=== PATIENT | female | born 2005 | race Caucasian/White ===

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

== ENCOUNTER 2025-06-08 00:25 | Emergency (ER) | payer BC, SELFPAY ==
--- NOTE | ~2025-06-08 | CT_ITS ---
CLINICAL HISTORY: Ruano vomiting s p HS with soccerball CT Head WO Contrast COMPARISON: None provided FINDINGS: No acute intracranial hemorrhage. No evidence of acute infarction. No mass-effect or midline shift. No hydrocephalus. Visualized paranasal sinuses are clear. The mastoid air cells are clear. The visible orbits are normal. No acute fracture. Unremarkable soft tissues. IMPRESSION: No acute intracranial findings. This document has been electronically signed by: Marshal Freeman MD on 06/08/2025 03:52:55
--- OUTSIDE RECORDS SUMMARY | 2025-06-08 00:11 | XMS_ITS | Encounter Summary ---
Author Organization [facility] Address [address] [place] [address] Phone Care Team Providers Care Bacon Skinner Name Role Phone Unavailable Primary Care Provider Unavailabl e Reason for Visit * Reason Comments Emesis Encounter Details Date Type Department Care Team (Late st Contact Info) Description 06/08/2025 12:11 AM EDT - 06/08/2025 12:22 AM EDT Emergency [facility] [address] [place] [address] Discharge Disposition: Left Without Being Seen Social History Tobacco Use Types Packs/Day Years Used Date Smoking Tobacco: Never Passive Smoke Exposure: Never Smokeless Tobacco: Never Tobacco Cessation:Counseling Given: Not Answered Alcohol Use Standard Drinks/Week Comments Not Currently 0 (1 standard drink = 0.6 oz pur e alcohol) Education Answer Date Recorded Are you interested in more education? Not on mikel e 05/15/2025 Are you concerned about learning? Not on file 05/15/2025 No 05/15/2025 No 05/15/2025 Digital Access Answer Date Recorded No 05/15/2025 No 05/15/2025 Reliable internet access at home? Not on file 05/15/2025 Device with a working camera? Not on file Comments Unknown Sex and Gender Information Value Date Recorded Sex Assigned at Not on file Legal Sex Female 4:05 PM EDT Gender Identity Not on file Sexual Orientation Not on file documented as of this encounter Last Filed Vital Signs Vital Sign Reading Time Taken Comments Blood Pressure 122/72 06/07/2025 11:48 PM EDT Pulse 86 06/07/2025 11:48 PM EDT Temperature 36.7 C (98 F) 06/07/2025 11:48 PM EDT Respiratory Rate 16 06/07/2025 11:48 PM EDT Oxygen Saturation 100% 06/07/2025 11:48 PM EDT Inhaled Oxygen Concentration - - Weight 61.2 kg (135 lb) 06/07/2025 11:48 PM EDT Height 162.6 cm (5' 4 ) 06/07/2025 11:48 PM EDT Body Mass Index 23.17 06/07/2025 11:48 PM EDT documented in this encounter Functional Status * Calculated C-SSRS Risk Score (Lifetime/Recent) Answer Date of Assessment Author No Risk Indicated 06/07/2025 11:49 PM EDT Gaye Paul RN * [place] Suicide Severity Rating Scale (Screener/Recent Self-Report) Question Answer Date of Assessment Author 1. Wish to be (Past 1 Month) No 06/07/2025 11:49 PM EDT Gaye Paul RN 2. Non-Specific Active Suicidal Thoughts (Past 1 Month) No 06/07/2025 11:49 PM EDT Gaye Paul RN 6. Suicidal Behavior (Lifetime) No 06/07/2025 11:49 PM EDT Gaye Paul RN documented as of this encounter ED Notes * Gaye Paul RN - 06/07/2025 11:47 PM EDT Patient presents with vomiting that started a few hours ago, took zofran with some relief, vomitingstarted out of the blue. No abdominal pain, no urinary complaints, last BM earlier today, normal. Awake, alert and oriented, speaking clearly, breathing equal and unlabored, afebrile. documented in this encounter Plan of Treatment Not on file documented as of this encounter Visit Diagnoses Not on filedocumented in this encounter Additional Source Comments The information contained in this document represents components of the legal health record. It is not the complete legal health record.[facility]
[2025-06-08 00:36] VITALS: BP 116/73; PULSE 84; RESP 16; TEMP 36.8; O2SAT 98; BMI 22.9
[2025-06-08 01:12] LABS: MANUAL DIFF FLAG NO
[2025-06-08 01:13] LABS: Hematocrit 39.9 % (37.0-47.0); Hemoglobin 13.9 g/dl (12.0-16.0); Imm Gran Abs Auto 0.07 X10*3/uL (0.00-0.03); Imm Gran Pct Auto 0.4 % (0.0-0.4); Lymphocytes Absolute Auto 0.9 X10*3/uL (1.2-4.9); Mean Corpuscular HGB Conc 34.8 g/dl (31.0-35.0); Mean Corpuscular Hemoglobin 28.2 pg (27.0-33.0); Mean Corpuscular Volume 80.9 fL (80.0-98.0); NRBC Abs Auto 0.000 X10*3/uL (0.0-0.012); NRBC Pct Auto 0.0 /100WBC (0.0-0.2); Platelet Count 359 X10*3/uL (160-400); Red Blood Count 4.93 X10*6/uL (4.20-5.50); White Blood Count 16.6 X10*3/uL (4.8-10.8)
[2025-06-08 01:32] LABS: Alanine Aminotransferase 18 U/L (0-31); Albumin Level 4.7 g/dL (3.5-5.0); Alkaline Phosphatase 84 U/L (39-117); Anion Gap 15 (12-20); Aspartate Amino Transferase 26 U/L (5-31); Blood Urea Nitrogen 6 mg/dL (9-16); Calcium 9.3 mg/dL (8.4-10.2); Carbon Dioxide 21 mmol/L (22-29); Chloride 110 mmol/L (96-108); Creatinine Clr Calc Pharmacy 98.1; Estimated Glomerular Filt Rate > 60; Magnesium 1.8 mg/dL (1.6-2.6); Potassium 3.8 mmol/L (3.3-5.1); Sodium 142 mmol/L (135-145); Total Protein 7.1 g/dL (6.5-8.0)
--- NOTE | 2025-06-08 01:56 | PC.NURSE ---
pt reports generalized pain 02/15, just doesn't feel well, threw up at least 14 times since about 11 pm, ate lunch at noon and played [employer] at 7 pm, during the game she head butted a ball and felt fine until an hour or so after the game when she was walking into her house. nausea and vomiting has subsided due to taking zofran from a friend. has been unable to tolerate the Gatorade she is trying to consume.
--- OUTSIDE RECORDS SUMMARY | 2025-06-08 02:17 | XMS_ITS | Encounter Summary ---
Author Organization [facility] Address [address] [place] [address] Care Team Providers Care Pig Conveyor Operator Name Role Phone Shima Marley MD Primary Care Provider Reason for Visit * Reason Comments E-prescribing Refill Request Encounter Details Date Type Department Care Team (Late st Contact Info) Description 03/18/[address] [facility] [address] [place] [phone] Marce Davis, GENE [address] [place] [address] E-prescribing Refill Request Social History Tobacco Use Types Packs/Day Years Used Date Smoking Tobacco: Never Passive Smoke Exposure: Never Smokeless Tobacco: Never Comments:patient was a previ ous vaper- quit 10/2024 Alcohol Use Standard Drinks/Week Comments Yes 0 (1 standard drink = 0.6 oz pure alcohol) 1-2 x per week , usually 2 drinks. PHQ-2 Answer Date Recorded PHQ-2 Score 2 12/13/2024 PHQ-9 Answer Date Recorded PHQ-9 Score 2 12/13/2024 Intimate Partner Violence Answer Date R ecorded [...] Upcoming Encounters Date Type Department Care Team (Latest Contact Info) Description 05/26/2026 2:15 PM EDT CPE - Comprehensive Physical Exam [facility] [address] [place] [phone] Marce Davis, GENE [address] [place] [address] CPE last 05/04/2025 documented as of this encounter Visit Diagnoses Not on filedocumented in this encounter Care Teams Pig Conveyor Operator Relationship Specialty Start Date End Date Shima Marley MD [address] [place] [address] PCP - General 05/24/23 documented as of this encounter
--- OUTSIDE RECORDS SUMMARY | 2025-06-08 02:17 | XMS_ITS | Encounter Summary ---
Author Organization [facility] Address [address] [place] [address] Care Team Providers Care Health Information Clerk Name Role Phone Abby Thomason NP Primary Care Provider Shima Sanchez MD Primary Care Provider [phone] Encounter Details Date Type Department Care Team (Late st Contact Info) Description 01/24/2022 Orders Only [facility] [address] [place] [phone] Abby Thomason NP Social History Tobacco Use [...] Family Practice [address] [place] [phone] Marce Davis, GENE [address] [place] [place] [id number] CPE last 05/04/2025 documented as of this encounter Procedures * Due to [place] [employer] law, this organization might not be sharing [...] in this encounter Results * Due to [place] law, this organization might not be sharing negative HIV tests. * CHLAMYDIA TRACHOMATIS/N. GONORRHOEAE (GC) RNA, TMA (URINE) (01/24/2022 2:39 PM EDT) Chlamydia trachomatis rRNA NOT DETECTED NOT DETECTED [facility] Neisseria Gonorrhoeae rRNA NOT DETECTED NOT DETECTED [facility] COMMENT SEE NOTE [facility] Comment: The analytical performance characteristics of this assay, when used to test SurePath(TM) specimens have been determined by [employer]. The modifications have not been cleared or approved by the FDA. This assay has been validated pursuant to the CLIA regulations and is used for clinical purposes. For additional information, please refer to https://education.Payfone/faq/PNT210 (This link is being provided for information/ educational purposes only.) 01/24/2022 2:39 PM EDT 01/24/2022 11:02 PM EDT Narrative Resulting Agency Comment [id number] Abby Thomason NP LABORATORY Final Result Performing Organization Address City/State/[facility] Co de Phone Number [facility] [address] [place] [address] * CBC INCLUDES DIFFERENTIAL AND PLATELET COUNT [...] 11:02 PM EDT Narrative Resulting Agency Comment [id number] Abby Thomason SHEET METAL SHOP SUPERVISOR LAB SAME DAY RESULT Final Re sult Performing Organization Address [facility] de Phone Number [facility] [address] [place] [address] * (ABNORMAL) BASIC METABOLIC PANEL WITH (GFR) [...] needs for GFR calculation. Resulting Agency Comment [id number] us Abby Thomason SHEET METAL SHOP SUPERVISOR LABORATORY Final Result Performing Organization Address [facility] Co de Phone Number [facility] [address] [place] [address] * HEPATIC FUNCTION PANEL (ALT,AST,ALK PH,BILI'S,TP,ALB) (01/24/2022 2:39 PM EDT) Protein Total (Serum) 7.0 6.3 - 8.2 [...] 11:02 PM EDT Narrative Resulting Agency Comment [id number] Abby Thomason NP LABORATORY Final Result [facility] [address] [place] [address] documented in this encounter Visit Diagnoses Diagnosis Unintentional weight loss Loss of weight Irritable bowel syndrome with diarrhea Irritable bowel syndrome Screening for chlamydial disease Special screening examination for unspecified chlamydial disease documented in this encounter Care Teams Health Information Clerk Relationship Specialty Start Date End Date Abby Thomason NP PCP - General Pediatrics 10/18/21 05/23/23 Shima Marley MD [address] [place] [address] PCP - General 05/24/23 documented as of this encounter
--- OUTSIDE RECORDS SUMMARY | 2025-06-08 02:17 | XMS_ITS | Encounter Summary ---
Author Organization [facility] Address [address] [place] [address] Care Team Providers Care Tractor Distributor Name Role Phone Abby Thomason NP Primary Care Provider Shima Sanchez MD Primary Care Provider [phone] Encounter Details Date Type Department Care Team (Late st Contact Info) Description 09/26/2022 Orders Only [facility] [address] [place] [phone] Devyn Cook MD [address] [place] [address] Social History Tobacco Use Types Packs/Day [...] Rd. Family Practice [address] [place] [phone] Marce Davis NP [address] [place] [address] CPE last 05/04/2025 documented as of this encounter Procedures * Due to [place] state law, this organization might not be [...] in this encounter Results * Due to [place] state law, this organization might not be sharing negative HIV tests. * T4, FREE, SERUM (09/26/2022 2:42 PM EST) FT4 1.5 0.9 - 1.7 NG/DL [facility] 09/26/2022 2:42 PM EST 09/26/2022 2:42 PM EST Narrative [facility] - 09/26/2022 5:07 PM EST Patient's primary care provider is: N/A Testing performed at: [facility], [address] [place] [address], [id number], Insurance Account Representative: Terry Fenton MD Devyn Cook MD LABORATORY Final Result Performing Organization Address City/State/[facility] Co de Phone Number [address] [address] DIRECTOR Terry Fenton MD * (ABNORMAL) HEPATIC FUNCTION PANEL (ALT,AST,ALK PH,BILI'S,TP,ALB) (09/26/2022 2:42 PM EST) Albumin 4.6(H) 3.2 - 4.5 g/dL [facility] Bilirubin Total 0.32 0.00 - 1.10 mg/dL [facility] Bilirubin Direct 0.1 0.0 - 0.3 mg/dL [facility] Alkaline phosphatase 72(L) 100 - 320 U/L [facility] AST (SGOT) 15 <38 U/L [facility] ALT (SGPT) 12 <47 U/L [facility] Protein Total (Serum) 7.1 6.0 - 8.3 g/dL [facility] Globulin 3 2 - 4 G/DL [facility] 09/26/2022 2:42 PM EST 09/26/2022 2:42 PM EST Narrative [facility] - 09/26/2022 4:40 PM EST Patient's primary care provider is: N/A Testing performed at: [facility], [address] [place] [address], [id number], Insurance Account Representative: Terry Fenton MD Devyn Cook MD LABORATORY Final Result [facility] [address] [place] [address] DIRECTOR Terry Fenton MD * CBC INCLUDES [...] PM EST 09/26/2022 2:42 PM EST Narrative [facility] - 09/26/2022 3:21 PM EST Patient's primary care provider is: N/A Testing performed at: [facility], [address] [place] [address], [phone], Insurance Account Representative: Terry Fenton MD Devyn Cook MD LAB SAME DAY RESULT Final Res ult Performing Organization Address [facility] de Phone Number [address] [address] DIRECTOR Terry Fenton MD * IRON PROFILE (IRON/TIBC), SERUM (09/26/2022 2:42 PM EST) Iron 70 50 - 170 ug/dL [facility] Iron Binding Capacity, Unsaturated 331.00 250.00 - 425.00 [facility] Iron saturation 21.15 15.00 - 50.00 % [facility] 09/26/2022 2:42 PM EST 09/26/2022 2:42 PM EST Narrative [facility] - 09/26/2022 4:40 PM EST Patient's primary care provider is: N/A Testing performed at: [facility], [address] [place] [address], [phone], Insurance Account Representative: Terry Fenton MD Devyn Cook MD LABORATORY Final Result Performing Organization Address [facility] de Phone Number [address] [address] DIRECTOR Terry Fenton MD * (ABNORMAL) THYROID STIMULATING HORMONE (TSH) WITH FREE T4 REFLEX, SERUM (09/26/2022 2:42 PM EST) TSH (Thyrotropin) 0.36(L) 0.50 - 4.30 uIU/ml [facility] 09/26/2022 2:42 PM EST 09/26/2022 2:42 PM EST Narrative [facility] - 09/26/2022 4:40 PM EST Patient's primary care provider is: N/A Testing performed at: [facility], [address] [place] [address], [address], Insurance Account Representative: Terry Fenton MD Devyn Cook MD LABORATORY Final Result Performing Organization Address [facility] de Phone Number [address] [address] DIRECTOR Terry Fenton MD * C-REACTIVE PROTEIN (CRP) - INFLAMMATION (09/26/2022 2:42 PM EST) C reactive protein <3.0 0.0 - 8.0 mg/L [facility] 09/26/2022 2:42 PM EST 09/26/2022 2:42 PM EST Narrative [facility] - 09/26/2022 4:40 PM EST Patient's primary care provider is: N/A Testing performed at: [facility], [address] [place] [address], [phone], Insurance Account Representative: Terry Fenton MD Devyn Cook MD LABORATORY Final Result Performing Organization Address [facility] de Phone Number [address] [address] DIRECTOR Terry Fenton MD * ERYTHROCYTE SEDIMENTATION RATE (ESR), HERMELINDOREN (09/26/2022 2:42 PM EST) ESR 4 <20 mm/h [facility] 09/26/2022 2:42 PM EST 09/26/2022 2:42 PM EST Narrative [facility] - 09/26/2022 3:35 PM EST Patient's primary care provider is: N/A Testing performed at: [facility], [address] [place] [address], [phone], Insurance Account Representative: Terry Fenton MD us Devyn Cook MD LAB SAME DAY RESULT Final Res ult Performing Organization Address City/[facility]/ZIP Co de Phone Number [address] [address] DIRECTOR Terry Fenton MD * CELIAC DISEASE COMPREHENSIVE PANEL WITH GLIADIN ANTIBODIES(IGG) (09/26/2022 2:41 PM EST) Service comment 01 SEE NOTE [facility] Comment: No serological evidence for celiac disease is present. tTg may normalize in individuals with celiac disease who maintain a gluten free diet. If high suspicion of celiac disease, consider HLA DQ2 and DQ8 testing to rule out celiac disease. (TTG) AB, IGA <1.0 U/mL [facility] Comment: Value Interpretation ----- <15.0 Antibody not detected > or = 15.0 Antibody detected IgA 148 47 - 310 mg/dL [facility] 09/26/2022 2:41 PM EST 09/26/2022 10:49 PM EST Narrative Resulting Agency Comment [id number] us Devyn Cook MD LABORATORY Final Result Performing Organization Address [facility] Co de Phone Number [facility] [address] [place] [address] * GGT (09/26/2022 2:41 PM EST) Gamma glutamyl transferase 19 6 - 26 U/L [facility] 09/26/2022 2:41 PM EST 09/26/2022 10:49 PM EST Narrative Resulting Agency Comment [id number] us Devyn Cook MD LABORATORY Final Result Performing Organization Address City/[facility]/ZIP Co de Phone Number [facility] [address] [place] [address] documented in this encounter Visit Diagnoses Diagnosis Diarrhea, unspecified type Weight loss Loss of weight documented in this encounter Care Teams Tractor Distributor Relationship Specialty Start Date End Date Abby Thomason NP PCP - General Pediatrics 10/18/21 05/23/23 Shima Marley MD [address] [place] [address] PCP - General 05/24/23 documented as of this encounter
--- OUTSIDE RECORDS SUMMARY | 2025-06-08 02:17 | XMS_ITS | Encounter Summary ---
Author Organization [facility] Address [address] [place] [address] Care Team Providers Care Associate Broker Name Role Phone Shima Marley MD Primary Care Provider [phone] Encounter Details Date Type Department Care Team (Late st Contact Info) Description 08/19/[address] [facility] [address] [place] [phone] Marce Davis, NURSING FACULTY [address] [place] [address] Social History Tobacco Use Types Packs/Day Years [...] Rd. [facility] [address] [place] [address] Marce Davis NP [address] [place] [address] CPE last 05/04/2025 documented as of this encounter Procedures * Due to [place] [employer] law, this organization might not be sharing negative HIV tests. Procedure Name Priority Date/Time Associated Diagnosis Comments CULTURE, URINE, ROUTINE Routine 08/19/2023 4:27 PM EST Difficult or painful urination documented in this encounter Results * Due to [place] [employer] law, this organization might not be sharing negative HIV tests. * CULTURE, URINE, ROUTINE (08/19/2023 4:27 PM EST) Bacteria culture (Urine) SEE NOTE [facility] Comment: CULTURE, URINE, ROUTINE Micro Number: [id number] Test Status: Final Specimen Source: Urine Specimen Quality: Adequate Result: Mixed genital rené isolated. These superficial bacteria are not indicative of a urinary tract infection. No further organism identification is warranted on this specimen. If clinically indicated, recollect clean-catch, mid-stream urine and transfer immediately to Urine Culture Transport Tube. 08/19/2023 4:27 PM EST 08/19/2023 11:27 PM EST Narrative Resulting Agency Comment [id number] us Marce Davis NP LABORATORY Final Result [facility] [address] [place] [address] documented in this encounter Visit Diagnoses Diagnosis Difficult or painful urination Dysuria documented in this encounter Care Teams Associate Broker Relationship Specialty Start Date End Date Shima Marley MD [address] [place] [address] PCP - General 05/24/23 documented as of this encounter
--- OUTSIDE RECORDS SUMMARY | 2025-06-08 02:17 | XMS_ITS | Encounter Summary ---
Author Organization [facility] Address [address] [place] [address] Care Team Providers Care Axle And Frame Mechanic Name Role Phone Shima Marley MD Primary Care Provider [phone] Encounter Details Date Type Department Care Team (Late st Contact Info) Description 03/02/[address] [facility] [facility] [address] [place] [id number] Shima Marley MD [address] [place] [place] [address] Social History Tobacco Use Types Packs/Day Years [...] MyChart message sent to patient automatically by [employer] * Result Encounter Note - Shima Marley MD - 03/02/2024 3:53 PM EDT Normal/Stable MyChart message sent to patient automatically by [employer] documented in this encounter Plan of Treatment Upcoming Encounters Date Type Department Care Team (Latest Contact Info) Description 05/26/2026 2:15 PM EDT CPE - Comprehensive Physical Exam [facility] [address] [facility] [address] [place] [phone] Marce Davis, EMPLOYMENT SPECIALIST/PROGRAM MANAGER [address] [address] CPE last 05/04/2025 documented as of this encounter Procedures * Due to [place] state law, this [...] in this encounter Results * Due to [place] state law, this organization might not be sharing negative HIV tests. * CHLAMYDIA TRACHOMATIS/N. GONORRHOEAE (GC) RNA, TMA (URINE) (03/02/2024 3:53 PM EDT) Chlamydia trachomatis rRNA NOT DETECTED NOT DETECTED [facility] Neisseria Gonorrhoeae rRNA NOT DETECTED NOT DETECTED [facility] COMMENT SEE NOTE [facility] Comment: The analytical performance characteristics of this assay, when used to test SurePath(TM) specimens have been determined by [employer]. The modifications have not been cleared or approved by the FDA. This assay has been validated pursuant to the CLIA regulations and is used for clinical purposes. For additional information, please refer to https://education.AdviseHub/faq/YIY793 (This link is being provided for information/ educational purposes only.) 03/02/2024 3:53 PM EDT 03/03/2024 2:06 AM EDT Narrative Resulting Agency Comment [id number] Shima Marley MD LABORATORY Final Result [facility] [address] [place] [address] * SYPHILIS (FTA) ANTIBODY CASCADING REFLEX TO [...] 2:06 AM EDT Narrative Resulting Agency Comment [id number] Shima Marley MD LABORATORY Final Result Performing Organization Address [facility] Co de Phone Number [facility] [address] [place] [address] * HEPATITIS C AB WITH REFLEX TO RNA PCR, SERUM (03/02/2024 3:53 PM EDT) Hepatitis C virus Ab NON-REACT FRACISCO NON-REACT FRACISCO [facility] Comment: HCV antibody was non-reactive. There is no laboratory evidence of HCV infection. In most cases, no further action is required. However, if recent HCV exposure is suspected, a test for HCV RNA (test code 50357) is suggested. For additional information please refer to http://education.AdviseHub/faq/RXD42q4 (This link is being provided for informational/ educational purposes only.) 03/02/2024 3:53 PM EDT 03/03/2024 2:06 AM EDT Narrative Resulting Agency Comment [id number] Shima Marley MD LABORATORY Final Result Performing Organization Address [facility] Co de Phone Number [facility] [address] [place] [address] documented in this encounter Visit Diagnoses Diagnosis Screen for sexually transmitted diseases Screening examination for venereal disease documented in this encounter Care Teams Axle And Frame Mechanic Relationship Specialty Start Date End Date Shima Marley MD [address] [place] [address] PCP - General 05/24/23 documented as of this encounter
--- OUTSIDE RECORDS SUMMARY | 2025-06-08 02:17 | XMS_ITS | Clinical Summary ---
Author Organization [facility] Address [address] [place] [address] Phone Care Team Providers Care Farmworker Dairy Name Role Phone Unavailable Primary Care Provider Unavailabl e Allergies No known active allergies Medications No known medications Encounters Date Type Department Care Team Description 06/08/2025 12:11 AM EDT - 06/08/2025 12:22 AM EDT Emergency [facility] [address] [place] [address] Discharge Disposition: Left Without Being Seen from Last 3 Months Social History Tobacco Use Types Packs/Day Years [...] Mass Index 23.17 06/07/2025 11:48 PM EDT Plan of Treatment Health Maintenance Due Date Last Done Comments MMR VACCINES (1 of 1 - Standard series) 2006 10/01/2006, 07/01/2006 DEVELOPMENTAL/BEHAVIORAL SCREENING (PHQ, PSC, or SWYC) 01/05/2008 COMBINED DTaP,Tdap,Td (1 - Tdap) 01/05/2012 12/11/2016, 02/03/2008, 2005, Additional history exists DEPRESSION SCREENING 2017 SMOKING Hx and SMOKELESS TOBACCO SCREENING 2018 VARICELLA VACCINES (1 of 2 - 13+ 2-dose series) 2018 02/23/2010, 01/06/2007 HPV VACCINES (1 - 3-dose series) 01/05/2020 CHLAMYDIA SCREENING 2021 MENINGOCOCCAL VACCINES (B) (1 of 2 - Standard) 2021 ADOLESCENT UNIVERSAL LIPID SCREENING 2022 HEPATITIS C SCREENING 2023 03/02/2024 HIV ONE-TIME SCREENING (18-65 YEARS) 2023 INFLUENZA VACCINE (#1) 2025 COVID-19 VACCINE ( - season) 2025 HEPATITIS A VACCINES Aged Out No long er eligible based on patient's age to complete this topic HIB VACCINES Aged Out No longer eligi ble based on patient's age to complete this topic MENINGOCOCCAL VACCINES (ACWY) Aged Out No longer eligible based on patient's age to complete this topic PNEUMOCOCCAL VACCINES (0-49 years) Aged Out No longer eligible based on patient's age to complete this topic Medical Devices Not on file Additional Source Comments The information contained in this document represents components of the legal health record. It is not the complete legal health record.[facility]
--- OUTSIDE RECORDS SUMMARY | 2025-06-08 02:17 | XMS_ITS | Encounter Summary ---
Author Organization [facility] Address [address] [place] [address] Care Team Providers Care Sawmill Relief Worker Name Role Phone Abby Thomason NP Primary Care Provider Shima Sanchez MD Primary Care Provider [phone] Encounter Details Date Type Department Care Team (Late st Contact Info) Description 07/08/2022 Orders Only [facility] [address] [facility] [address] [place] [address] Shaun Oconnor MD [address] [facility] [address] [place] [address] Social History Tobacco Use Types Packs/Day Years [...] Rd. Family Practice [address] [place] [phone] Marce Davis NP [address] [place] [address] CPE last 05/04/2025 documented as of this encounter Results * Due to [place] state law, this organization might not be [...] radiopaque foreign body. IMPRESSION: 1. Normal exam. Procedure Note Maggie Munoz MD - [...] bone documented in this encounter Care Teams Sawmill Relief Worker Relationship Specialty Start Date End Date Abby Thomason NP PCP - General Pediatrics 10/18/21 05/23/23 Shima Marley MD [address] [place] [address] PCP - General 05/24/23 documented as of this encounter
--- OUTSIDE RECORDS SUMMARY | 2025-06-08 02:17 | XMS_ITS | Encounter Summary ---
Author Organization [facility] Address [address] [place] [address] Care Team Providers Care Collection Team Lead Name Role Phone Abby Thomason NP Primary Care Provider Shima Sanchez MD Primary Care Provider [phone] Encounter Details Date Type Department Care Team (Late st Contact Info) Description 09/26/2022 Orders Only [facility] [address] [place] [address] Abby Thomason NP Social History Tobacco Use [...] [facility] [address] [place] [address] Marce Davis NP [address] [place] [address] CPE last 05/04/2025 documented as of this encounter Procedures * Due to [place] [employer] law, this organization might not be sharing negative HIV tests. Procedure Name Priority Date/Time Associated Diagnosis Comments BASIC METABOLIC PANEL WITH (GFR) Routine 09/26/2022 2:42 PM EST Unintentional weight loss Current moderate episode of major depressive disorder without prior episode documented in this encounter Results * Due to [place] [employer] law, this organization might not be sharing negative HIV tests. * BASIC METABOLIC PANEL WITH (GFR) (09/26/2022 2:42 PM EST) Glucose 87 65 - 99 mg/dl [facility] Urea Nitrogen Blood (BUN) 11 7 - 25 mg/dL [facility] Creatinine 0.69 0.50 - 1.16 mg/dL [facility] Sodium 139 135 - 146 mmo/L [facility] Potassium 3.9 3.5 - 5.3 mmol/L [facility] Chloride 103 98 - 107 mmo/L [facility] Carbon dioxide 25 23 - 33 mmol/L [facility] Calcium 9.4 8.5 - 10.4 mg/dL [facility] GFR PATIENT IS LESS THAN 18 YEARS OF AGE EGFR CANNOT BE CALCULATED >60 ml/min [facility] 09/26/2022 2:42 PM EST 09/26/2022 2:42 PM EST Narrative [facility] - 09/26/2022 4:49 PM EST Patient's primary care provider is: N/A Testing performed at: [facility], [address] [place] [address], [id number], Braiding Operator: Terry Fenton MD us Abby Thomason NP LABORATORY Final Result [address] [address] DIRECTOR Terry Fenton MD documented in this encounter Visit Diagnoses Diagnosis Unintentional weight loss Loss of weight Current moderate episode of major depressive disorder without prior episode (HCC) documented in this encounter Care Teams Collection Team Lead Relationship Specialty Start Date End Date Abby Thomason NP PCP - General Pediatrics 10/18/21 05/23/23 Shima Marley MD [address] [place] [address] PCP - General 05/24/23 documented as of this encounter
--- OUTSIDE RECORDS SUMMARY | 2025-06-08 02:17 | XMS_ITS | Encounter Summary ---
Author Organization [facility] Address [address] [place] [address] Care Team Providers Care Dental Amalgam Processor Name Role Phone Abby Thomason NP Primary Care Provider Shima Sanchez MD Primary Care Provider Encounter Details Date Type Department Care Team (Late st Contact Info) Description 04/11/2023 Orders Only [facility] [address] [place] [phone] Abby Thomason NP Social History Tobacco Use [...] on file documented as of this encounter Functional Status * Over the past 2 weeks, how often have you been bothered by any of the following problems? Question Answer Date of Assessment Author Patient Health Questionnaire-2 Score 4 12/2022 9:32 AM EDT [facility] Sosa * Little interest or pleasure in doing things Answer Date of Assessment Author More than half the days 04/11/2023 9:32 AM EDT T ableLenard skinner * Feeling down, depressed, or hopeless Answer Date of Assessment Author More than half the days 04/11/2023 9:32 AM EDT [facility] Dempsey * Question Answer Date of Assessment Author Patient Health Questionnaire-9 Score 20 0812/2022 9:32 AM EDT TabletLenard * Trouble falling or staying asleep, or sleeping too much Answer Date of Assessment Author Nearly every day 04/11/2023 9:32 AM EDT Tablet,H olden * Feeling tired or having little energy Answer Date of Assessment Author Nearly every day 04/11/2023 9:32 AM EDT Tablet,H olden * Poor appetite or overeating Answer Date of Assessment Author Nearly every day 04/11/2023 9:32 AM EDT Tablet,H olden * Feeling bad about yourself - or that you are a failure or have let yourself or your family down Answer Date of Assessment Author More than half the days 04/11/2023 9:32 AM EDT Lenard Dempsey * Trouble concentrating on things, such as reading the newspaper or watching television Answer Date of Assessment Author Nearly every day 04/11/2023 9:32 AM EDT Tablet,H olden * Moving or speaking so slowly that other people could have noticed? Or the opposite - being so fidgety or restless that you have been moving around a lot more than usual. Answer Date of Assessment Author More than half the days 04/11/2023 9:32 AM EDT Lenard Dempsey * Thoughts that you would be better off or hurting yourself in some way Answer Date of Assessment Author Not at all 04/11/2023 9:32 AM EDT Tablet,Ho lden * Over the last 2 weeks, how often have you been bothered by any of the following problems? Question Answer Date of Assessment Author ROCCO-7 Total Score 13 04/11/2023 9:32 AM EDT TabletLenard * Feeling nervous, anxious, or on edge Answer Date of Assessment Author 3 04/11/2023 9:32 AM EDT Tablet,Ho lden * Not being able to stop or control worrying Answer Date of Assessment Author 1 04/11/2023 9:32 AM EDT Tablet,Ho shonnaen * Worrying too much about different things Answer Date of Assessment Author 1 04/11/2023 9:32 AM EDT Tablet,Ho lden * Trouble relaxing Answer Date of Assessment Author 2 04/11/2023 9:32 AM EDT Tablet,Ho lden * Being so restless that it is hard to sit still Answer Date of Assessment Author 3 04/11/2023 9:32 AM EDT Tablet,Ho lden * Becoming easily annoyed or irritable Answer Date of Assessment Author 2 04/11/2023 9:32 AM EDT Tablet,Ho lden * Feeling afraid as if something awful might happen Answer Date of Assessment Author 1 04/11/2023 9:32 AM EDT Tablet,Ho lden * How difficult have these problems made it for you to do your work, take care of things at home, or get along with other people? Answer Date of Assessment Author Extremely difficult 04/11/2023 9:32 AM EDT Theresa skinnerWeinberg documented as of this encounter Miscellaneous Notes [...] [address] [facility] [facility] [address] [id number] Marce Davis NP [address] [place] [address] CPE last 05/04/2025 documented as of this encounter Procedures * Due to [place] [employer] law, this organization might not be sharing [...] in this encounter Results * Due to [place] [employer] law, this organization might not be sharing negative HIV tests. * CHLAMYDIA TRACHOMATIS/N. GONORRHOEAE (GC) RNA, TMA (URINE) (04/11/2023 3:24 PM EDT) Chlamydia trachomatis rRNA NOT DETECTED NOT DETECTED [facility] Neisseria Gonorrhoeae rRNA NOT DETECTED NOT DETECTED [facility] COMMENT SEE NOTE [facility] Comment: The analytical performance characteristics of this assay, when used to test SurePath(TM) specimens have been determined by [employer]. The modifications have not been cleared or approved by the FDA. This assay has been validated pursuant to the CLIA regulations and is used for clinical purposes. For additional information, please refer to https://education.[employer].Ziptask/faq/AAH925 (This link is being provided for information/ educational purposes only.) 04/11/2023 3:24 PM EDT 04/12/2023 1:43 AM EDT Narrative Resulting Agency Comment [id number] us Abby Thomason NP LABORATORY Final Result [facility] [address] [place] [address] * LIPID PANEL WITH REFLEX TO DIRECT [...] LDL-C. Cayden SS et al. CLARK. 2013;310(19): 8031-9915 (http://education.JoinMe@/faq/VSS398) CHOL/HDL Ratio 2.1 <5.0 (calc) [facility] Cholesterol Non-HDL 89 <120 mg/dL (calc) [facility] Comment: For patients with diabetes plus 1 major ASCVD risk factor, treating to a non-HDL-C goal of <100 mg/dL (LDL-C of <70 mg/dL) is considered a therapeutic option. 04/11/2023 10:2 2 AM EDT 04/11/2023 10:24 PM EDT Narrative Resulting Agency Comment [id number] Abby Thomason NP LABORATORY Final Result Performing Organization Address City/[facility]/ZIP Co de Phone Number [facility] [address] [place] [address] * THYROID STIMULATING HORMONE (TSH) WITH FREE T4 REFLEX, SERUM (04/11/2023 10:22 AM EDT) Pathologist [facility] TSH 0.91 mIU/L [facility] Comment: Reference Range 1-19 Years 0.50-4.30 Ranges First trimester 0.26-2.66 Second trimester 0.55-2.73 Third trimester 0.43-2.91 04/11/2023 10:2 2 AM EDT 04/11/2023 10:24 PM EDT Narrative Resulting Agency Comment [id number] Abby Thomason NP LABORATORY Final Result [facility] [address] [place] [address] * (ABNORMAL) ALLERGY FOOD PANEL, IGE PEDIATRIC (04/11/2023 10:22 AM EDT) Pathologist [facility] Egg White (F1) IgE <0.10 kU/L [facility] Egg White (F1) Class 0 [facility] Milk (F2) IgE 0.25(H) kU/L [facility] Milk (F2) Class 0/1 [facility] Wheat (F4) IgE <0.10 kU/L [facility] Wheat (F4) Class 0 [facility] [place] Grass (F5) IgE <0.10 kU/L [facility] [place] Grass (F5) Class 0 [facility] Barley (F6) IgE <0.10 kU/L [facility] Barley (F6) Class 0 [facility] Oat (IgE) <0.10 kU/L [facility] Oat (F7) Class 0 [facility] Elizabeth (F8) IgE <0.10 kU/L [facility] Grover/Elizabeth (F8) Class 0 [facility] Rice (F9) [...] DIAGNOSTICS Pork (F26) Class 0 [facility] Streeter (F33) IgE <0.10 kU/L [facility] Streeter (F33) Class 0 [facility] Potato (F35) IgE <0.10 kU/L [facility] Potato (F35) Class 0 [facility] Weott (F44) IgE <0.10 kU/L [facility] Weott (F44) Class 0 [facility] Bakers Yeast (F45) IgE <0.10 kU/L [facility] Bakers Yeast (F45) Class 0 [facility] [place] (Chocolate) (F93) IgE <0.10 kU/L [facility] [place] (Chocolate) (F93) Class 0 [facility] Banana (F92) IgE <0.10 kU/L [facility] Banana (F92) Class 0 [facility] 04/11/2023 10:2 2 AM EDT 04/11/2023 10:24 PM EDT Narrative Resulting Agency Comment [id number] us Abby Thomason NP LABORATORY Final Result Performing Organization Address City/State/[facility] Co de Phone Number [facility] [address] [place] [address] documented in this encounter Visit Diagnoses Diagnosis Irritable bowel syndrome with both constipation and diarrhea Screening for thyroid disorder Screening for cholesterol level Screening for lipoid disorders Encounter for screening for infections with predominantly sexual mode of transmission Screening examination for venereal disease documented in this encounter Care Teams Dental Amalgam Processor Relationship Specialty Start Date End Date Abby Thomason NP PCP - General Pediatrics 10/18/21 05/23/23 Shima Marley MD [address] [place] [address] PCP - General 05/24/23 documented as of this encounter
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
--- OUTSIDE RECORDS SUMMARY | 2025-06-08 02:17 | XMS_ITS | Encounter Summary ---
Author Organization [facility] Address [address] [place] [address] Care Team Providers Care Compensation Business Partner Name Role Phone Shima Marley MD Primary Care Provider [phone] Encounter Details Date Type Department Care Team (Late st Contact Info) Description 11/09/[address] [facility] [address] [id number] Marce Davis, MANAGER ENGAGEMENT [address] [address] Social History Tobacco Use Types Packs/Day Years [...] - 11/09/2024 12:18 PM EST Please see MyChart message. * Result Encounter Note - Shima Marley MD - 11/09/2024 12:18 PM EST Please see [employer] message. * Result Encounter Note - Shima Marley MD - 11/09/2024 12:18 PM EST Please see [employer] message. documented in this encounter Plan of Treatment Upcoming Encounters Date Type Department Care Team (Latest Contact Info) Description 05/26/2026 2:15 PM EDT CPE - Comprehensive Physical Exam [address] [facility] [address] [phone] Marce Davis NP [address] [address] CPE last 05/04/2025 documented as of this [...] Comment: For additional information, please refer to https://education.Bucky Box/faq/TXP573 (This link is being provided for information/ educational purposes only.) 11/09/2024 12:2 8 PM EST 11/09/2024 10:25 PM EST Narrative Resulting Agency Comment [id number] Marce Davis NP LABORATORY Final Result Performing Organization Address City/[facility]/ZIP Co de Phone Number [facility] [address] [place] [address] * CBC INCLUDES DIFFERENTIAL AND PLATELET COUNT (11/09/2024 12:18 PM EST) [facility] WBC 6.7 3.8 - 10.8 Thousand/u L [...] 2:43 AM EST Narrative Resulting Agency Comment [id number] us Marce Davis NP LAB SAME DAY RESULT Fi nal Result Performing Organization Address City/[facility] Co de Phone Number [facility] [address] [place] [address] * (ABNORMAL) IRON PROFILE (IRON/TIBC), SERUM (11/09/2024 12:18 PM EST) Iron 39 27 - 164 mcg/dL [facility] Iron binding capacity 354 271 - 448 mcg/dL (calc) [facility] Iron saturation 11(L) 15 - 45 % (calc) [facility] 11/09/2024 12:1 8 PM EST 11/10/2024 2:43 AM EST Narrative Resulting Agency Comment [id number] Marce Davis MANAGER ENGAGEMENT LABORATORY Final Result Performing Organization Address [facility] Co de Phone Number [facility] [address] [place] [address] * FERRITIN (11/09/2024 12:18 PM EST) Ferritin 26 16 - 154 ng/mL [facility] 11/09/2024 12:1 8 PM EST 11/10/2024 2:43 AM EST Narrative Resulting Agency Comment [id number] Marce Davis MANAGER ENGAGEMENT LABORATORY Final Result Performing Organization Address [facility] de Phone Number [facility] [address] [place] [address] * COMPREHENSIVE METABOLIC PANEL WITH GFR (11/09/2024 12:18 PM EST) Glucose 89 65 - 99 mg/dL [facility] Comment:Fasting reference in terval Urea Nitrogen Blood (BUN) 8 7 - 20 mg/dL [facility] Creatinine 0.75 0.50 - 0.96 mg/dL [facility] EGFR 118 > OR = 60 mL/min/1. 73m2 [facility] BUN/Creatinine Ratio SEE NOTE: 6 - 22 (calc) [facility] Comment: Not Reported: BUN and Creatinine are within reference range. Sodium 139 135 - 146 [...] needs for GFR calculation. Resulting Agency Comment [id number] Marce Davis NP LABORATORY Final Result Performing Organization Address [facility] Co de Phone Number [facility] [address] [place] [address] * THYROID STIMULATING HORMONE (TSH) WITH FREE T4 REFLEX, SERUM (11/09/2024 12:18 PM EST) Pathologist [facility] TSH 0.77 mIU/L [facility] Comment: Reference Range 1-19 Years 0.50-4.30 Ranges First trimester 0.26-2.66 Second trimester 0.55-2.73 Third trimester 0.43-2.91 11/09/2024 12:1 8 PM EST 11/10/2024 2:43 AM EST Narrative Resulting Agency Comment [id number] Marce Davis NP LABORATORY Final Result Performing Organization Address [facility] Co de Phone Number [facility] [address] [place] [address] * (ABNORMAL) URINALYSIS DIP W/ REFLEX TO [...] 2:43 AM EST Narrative Resulting Agency Comment [id number] Marce Davis NP LABORATORY Final Result Performing Organization Address [facility] de Phone Number [facility] [address] [place] [address] * SYPHILIS (FTA) ANTIBODY CASCADING REFLEX TO [...] 2:43 AM EST Narrative Resulting Agency Comment [id number] Marce Davis NP LABORATORY Final Result Performing Organization Address [facility] de Phone Number [facility] [address] [place] [address] * HCG, (HUMAN CHORIONIC GONADOTROPIN), TOTAL, QUANTITATIVE (11/09/2024 12:18 PM EST) HCG, Total, Quantitative <5 mIU/mL [facility] Comment: Reference Range Non or premenopausal <5 Postmenopausal <10 Values from different assay methods may vary. The use of this assay to monitor or to diagnose patients with cancer or any condition unrelated to has not been cleared or approved by the FDA or the trim mechanic of the assay. 11/09/2024 12:1 8 PM EST 11/10/2024 2:43 AM EST Narrative Resulting Agency Comment [id number] us Marce Davis MANAGER ENGAGEMENT LAB SAME DAY RESULT Fi nal Result [facility] [address] [place] [address] documented in this encounter Visit Diagnoses Diagnosis Pelvic pain Reserved for inherently not codable concepts WITHOUT codable children Screen for sexually transmitted diseases Screening examination for venereal disease Functional dyspareunia Dyspareunia, psychogenic documented in this encounter Care Teams Compensation Business Partner Relationship Specialty Start Date End Date Shima Marley MD [address] [place] [address] PCP - General 05/24/23 documented as of this encounter
[2025-06-08 02:53] VITALS: BP 116/70; PULSE 92; RESP 18; TEMP 36.8; O2SAT 96
--- NOTE | 2025-06-08 03:18 | PC.NURSE ---
pt medicated per MAR.
--- NOTE | 2025-06-08 04:40 | ED.GENADULT ---
[facility] - General Adult General Chief complaint: Head Injury Stated complaint: N/V Time Seen by Provider: 06/08/25 03:10 Source: patient Mode of arrival: ambulatory Limitations: no limitations History of Present Illness ED Provider: Dr. Alayna Olivera HPI narrative: Previously healthy 20-year-old female presenting with nausea and vomiting ongoing for the last 2 hours. States that she played an intramural soccer game where she head butted the soccer ball. States that after the game, she had some headaches and vomited several times. Was encouraged to come to the emergency department by her friends. Describes occasional dizziness and lightheadedness associated with the headache but otherwise denies numbness/tingling/weakness of the extremities, vision changes, altered mental status, fever, neck stiffness, hematemesis, chest pain, difficulty breathing, abdominal pain, bowel changes or urinary complaints. Patient does admit that she has a history of eating disorder and bulimia. Admits that she has been under lot of stress lately but does not feel as though her vomiting today is related to the bulimia. Denies intentional self-harm. Related Data Previous Rx's ?Medication ?Instructions ?Recorded ondansetron 4 mg disintegrating 4 mg PO Q8H PRN nausea and 06/08/25 tablet vomiting #10 tabs Allergies Allergy/AdvReac Type Severity Reaction Status Date / Time No Known Allergies Allergy Verified 06/08/25 00:39 Review of Systems Review of Systems: as per HPI, full review of systems performed and negative but for the above mentioned pertinent positives and negatives. Physical Exam ED Exam Exam: GENERAL: Well-Appearing, conversant, no acute distress. SKIN: Normal skin color for ethnicity, warm, dry, no rashes noted. HEENT:? Normocephalic, atraumatic, no stridor, posterior oropharynx nonerythematous, dentition intact, EOMI. NECK: Soft, supple, full ROM, midline structures nontender, no step-offs, no deformities, no lymphadenopathy. CHEST: Heart regular rate and rhythm, no murmurs, symmetric chest rise and fall. PULMONARY: Clear to auscultation bilaterally, no labored breathing, no wheezes/rhales/rhonchi. ABDOMINAL: Soft, nondistended, nontender, positive bowel sounds in all quadrants. : Deferred. MUSCULOSKELETAL: Normal tone, full range of motion, no deformities, no peripheral edema. NEURO: Alert and oriented x3, CN II through XII intact, equal strength and sensation bilateral upper and lower extremities, no focal neurologic deficits.? PSYCHIATRIC: Normal affect, fluid speech, good eye contact and appropriate demeanor. Vital Signs: Vital Signs - 24 hr 06/08/25 00:36 06/08/25 02:53 Temperature 98.3 F 98.3 F Pulse Rate 84 92 Respiratory Rate 16 18 Blood Pressure 116/73 116/70 Pulse Oximetry 98 96 Oxygen Delivery Method Room Air Room Air BMI result Body Mass Index 22.9 Medications Administered Discontinued Medications Generic Name Dose Route Start Last Admin Trade Name Freq PRN Reason Stop Dose Admin Ibuprofen 600 mg 06/08/25 03:11 06/08/25 03:16 Ibuprofen 600 Mg Tablet PO 06/08/25 03:12 600 mg ONCE ONE Administration Ondansetron HCl 4 mg 06/08/25 03:11 06/08/25 03:16 Ondansetron Odt 4 Mg Tab.Rapdis TRANSLINGU 06/08/25 03:12 4 mg ONCE ONE Administration Medical Decision Making Medical Decision Making [facility] Narrative: Patient presents today with a chief complaint of vomiting after head butting a soccer ball. Differential diagnosis includes surgical emergency such as concussion or closed head injury, obstruction, enteritis, hyperglycemia, acidosis, food or drug ingestion, pancreatitis, CVA, allergic reaction such as anaphylaxis, cannabis hyperemesis syndrome or cyclic vomiting syndrome, among many others. She has a history of bulemia but is insistent that is not happening today.? Patient is not showing signs of acute dehydration or hemodynamic instability.? They are not having associated abdominal pain. ? Broad-based work-up was initiated based on above history and physical exam. Workup reassuring. Leukocytosis likely secondary to vomiting. Hydrated with IVF. Improving with nausea. Stable for d/c. Using shared decision making, plan for discharge home to follow-up with primary care and/or specialist.? Patient understands and agrees with plan for discharge.? Discharged home in stable condition. Differential Diagnosis Differential Diagnoses: The differential diagnosis associated with the presentation includes (as above) Admission/Observation Consideration of admission/observation: Escalation of care including admission/observation considered Lab Data [facility] Lab Attestation statement: I reviewed the patient's lab results. 06/08/25 01:07 06/08/25 01:07 Labs: Lab Results 06/08/25 Range/Units 01:07 WBC 16.6 H (4.8-10.8) X10*3/uL RBC 4.93 (4.20-5.50) X10*6/uL Hgb 13.9 (12.0-16.0) g/dl Hct 39.9 (37.0-47.0) % MCV 80.9 (80.0-98.0) fL MCH 28.2 (27.0-33.0) pg MCHC 34.8 (31.0-35.0) g/dl RDW 13.3 (11.0-16.0) % Plt Count 359 (160-400) X10*3/uL MPV 10.2 (9.4-12.3) fL Immature Gran % (Auto) 0.4 (0.0-0.4) % Neut % (Auto) 89.5 H (45-73) % Lymph % (Auto) 5.7 L (20-40) % Harnett % (Auto) 3.8 (2-11) % Eos % (Auto) 0.0 (0-4) % Baso % (Auto) 0.6 (0-2) % Lymph # (Auto) 0.9 L (1.2-4.9) X10*3/uL Harnett # (Auto) 0.6 (0.1-1.2) X10*3/uL Eos # (Auto) 0.0 (0.0-0.4) X10*3/uL Baso # (Auto) 0.1 (0.0-0.2) X10*3/uL Abs Immat Gran (auto) 0.07 H (0.00-0.03) X10*3/uL Absolute Neuts (auto) 14.9 H (2.0-8.3) x10*3/uL Absolute Nucleated RBC 0.000 (0.0-0.012) X10*3/uL Nucleated RBC % (auto) 0.0 (0.0-0.2) /100WBC Sodium 142 (135-145) mmol/L Potassium 3.8 (3.3-5.1) mmol/L Chloride 110 H (96-108) mmol/L Carbon Dioxide 21 L (22-29) mmol/L Anion Gap 15 (12-20) BUN 6 L (9-16) mg/dL Creatinine 0.79 (0.5-1.4) mg/dL Estim Creat Clear Calc 98.1 Estimated GFR > 60 Random Glucose 102 (60-115) mg/dL Calcium 9.3 (8.4-10.2) mg/dL Magnesium 1.8 (1.6-2.6) mg/dL Total Bilirubin 0.7 (0.0-1.0) mg/dL AST 26 (5-31) U/L ALT 18 (0-31) U/L Alkaline Phosphatase 84 (39-117) U/L Total Protein 7.1 (6.5-8.0) g/dL Albumin 4.7 (3.5-5.0) g/dL Beta HCG, Quant < 2 mIU/mL Prescription Management I considered prescription management with: Other (antiemetics) Chronic Conditions Patient?s care impacted by: Other (bulemia) Social Determinants Patient?s care significantly limited by Social Determinants of Health including: Problems related to primary support group and Other Social Determinant of Health Discharge Plan Discharge Clinical Impression: Concussion without loss of consciousness, Vomiting alone Patient Disposition: Home, Self-Care Instructions: Concussion (ED), Acute Nausea and Vomiting (ED) Additional Instructions: Use Zofran for nausea. Use ibuprofen for headaches. Return to the emergency department immediately with any new or worsening symptoms including: Fevers greater than 100?, neck stiffness, rashes on your legs, severe headaches associated with fever, any new symptom that concerns you. You can expect to have concussion symptoms that can last for weeks. Symptoms of a concussion include: Headaches, blurred vision, nausea, vomiting, fogginess in your thinking or difficulty concentrating, among others. Try to avoid hitting your head again. Prescriptions: New ondansetron 4 mg tablet,disintegrating 4 mg PO Q8H PRN (Reason: nausea and vomiting) Qty: 10 0RF Stand Alone Forms: Work/School Release Interventions: ED Discharge Assessment Last Done: 06/08/25 05:02 Discharge Date/Time: 06/08/25 05:04 Print Language: Kiswahili
[2025-06-08 05:02] VITALS: BP 105/57; PULSE 83; RESP 16; TEMP 36.4; O2SAT 97
== END 2025-06-08 05:04 | disposition home or self-care (01) ==
PROVIDERS: Emergency Provider Emergency Medicine
DX: S06.0X0A Concussion without loss of consciousness, initial encounter (principal); W21.02XA Struck by soccer ball, initial encounter; Y93.89 Activity, other specified; Y92.9 Unspecified place or not applicable; Y99.9 Unspecified external cause status; R51.9 Headache, unspecified; R11.10 Vomiting, unspecified; R42 Dizziness and giddiness
CPT/HCPCS: 36415; 70450; 80053; 83735; 84702; 85025; 99284

== ENCOUNTER → 2025-06-08 02:46 | Outpatient (BNV) | payer BC, SELFPAY | PROVIDERS: Emergency Provider Emergency Medicine; Visit Provider Radiology Diagnostic Radiology | DX: R51.9 Headache, unspecified (principal); R11.10 Vomiting, unspecified; W21.02XA Struck by soccer ball, initial encounter | CPT/HCPCS: 70450 ==